=== PATIENT | male | born 1995 | race Caucasian/White ===

== ENCOUNTER 2020-06-15 18:50 | Emergency (ER) | payer OTHER, SELFPAY ==
--- NOTE | ~2020-06-15 | XR_ITS ---
EXAMINATION: XR chest 2V DATE: 06/15/2020 20:33 INDICATION: Shortness of breath and cough. TECHNIQUE: Frontal and lateral views of the chest were obtained. COMPARISON: Chest 2 views 10/15/2017, CT abdomen and pelvis 10/15/2017 FINDINGS: The chest demonstrates clear lungs without pneumonia, pleural effusion, or pneumothorax. Th e heart size is normal. IMPRESSION: 1. No acute cardiopulmonary disease. Reviewed, dictated and finalized at location A.
[2020-06-15 19:00] VITALS: BP 131/85; PULSE 88; RESP 20; TEMP 36.9; O2SAT 96; O2SAT 97
[2020-06-15 19:15] VITALS: PULSE 88
--- NOTE | 2020-06-15 19:23 | ECG_ITS ---
Measurements Intervals [place] Rate: 88 P: -9 WI: 110 QRS: 28 QRSD: 93 T: 29 QT: 339 QTc: 412 Interpretive Statements SINUS RHYTHM WITH SHORT WI INTERVAL BASELINE ARTIFACT- AVR, AVL, AVF BORDERLINE ECG Electronically Signed On 06-16-2020 8:03:49 CDT by Jose Meade D.O.
--- NOTE | 2020-06-15 19:37 | ED.SOB ---
HPI - SOB/Dyspnea General Chief Complaint: Shortness of Breath/Dyspnea Stated Complaint: dizzy,chest pain, tired, sorethroat, blurry vision Time Seen by Provider: 06/15/20 19:05 Source: patient Mode of arrival: ambulatory Limitations: no limitations History of Present Illness HPI Narrative: Patient comes in with complaints of chest pain and shortness of breath. Chest pain is moderately severe, sharp, and has been going on for several days not improving. He has had a cough, mostly a dry cough with this. He denies fever and chills. He has had some mild to moderate shortness of breath. Cough has been wearing him out, but mostly nonproductive. He has had a clear thin runny nose. He believes his cough has precipitated the chest pain. No other modifying factors or associated signs/symptoms. MD elicited complaint: shortness of breath Pertinent past history: pneumonia Onset (ago): day(s) Context: anxiety Timing: constant Severity: moderate Exacerbating factors: nothing Relieving factors: nothing Known history of: asthma Associated symptoms: denies other symptoms Treatment prior to arrival: none Related Data Allergies Allergy/AdvReac Type Severity Reaction Status Date / Time No Known Allergies Allergy Unverified 10/15/17 14:41 Review of Systems Constitutional: Constitutional: Reports no additional constitutional complaints Eyes: Eyes: Reports no additional eye complaints ENT: Reports system reviewed and no additional complaints, except as documented Cardiovascular: Cardiovascular: Reports no additional cardiovascular complaints Respiratory: Respiratory: Reports no additional respiratory complaints Gastrointestinal: Gastrointestinal: Reports no additional gastrointestinal complaints Genitourinary: Genitourinary: Reports no additional male genitourinary complaints Musculoskeletal: Musculoskeletal: Reports no additional musculoskeletal complaints Integumentary/Breasts: Skin/Breast: Reports system reviewed and no additional complaints, except as docu Neurologic: Reports system reviewed and no additional complaints, except as documented Psychiatric: Psychiatric: Reports no additional psychiatric complaints Endocrine: Endocrine: Reports no additional endocrine complaints Hematologic/Lymphatic: Hematologic/Lymphatic: Reports no additional hematologic/lymphatic complaints Allergic/Immunologic: Allergic/Immunologic: Reports no additional allergic/immunologic complaints [facility] Past Medical History Medical History (Updated 06/16/20 @ 02:51 by Ashu Nelson MD) Asthma Pneumonia Surgical History Surgical History (Updated 06/16/20 @ 02:51 by Ashu Nelson MD) No significant past surgical history Family History Family History (Updated 06/16/20 @ 02:52 by Ashu Nelson MD) Father COPD (chronic obstructive pulmonary disease) Hypertension Diabetes mellitus Social History Social History (Updated 06/16/20 @ 02:52 by Ashu Nelson MD) Smoking status: Never smoker Alcohol use details: very rare minimal alcohol use Substance use: never Gender identity (if verbalized by the patient): Male Exam Const: General: healthy appearing and no acute distress Orientation/consciousness: patient oriented x3 HENMT: Head: normal to inspection Ears: external ears normal and TM's normal bilaterally General nose exam: Normal external nose present Face and sinus: normal facial exam Mouth: Yes Normal oral and palatal mucosa present Throat: posterior oropharynx normal Eyes: Conjunctivae: conjunctivae normal Neck: Neck: normal visual inspection Chest: Chest palpation & inspection: normal inspection of the chest Resp: Effort & Inspection: normal respiratory effort Auscultation: clear to auscultation bilaterally Cardio: Rate: regular rate Rhythm: regular rhythm GI: GI Palp: Yes Soft to palpation (nontender) Skin: General skin exam: normal color Neuro: General: patient oriented x3 and moves all e
[2020-06-15 19:40] LABS: Basophils Absolute Auto 0.05 K/mm3 (0.00-0.10); Basophils Percent Auto 0.4 % (0.0-1.0); Eosinophils Absolute Auto 0.21 K/mm3 (0.02-0.50); Eosinophils Percent Auto 1.8 % (1.0-6.0); Hematocrit 47.4 % (40.0-54.0); Hemoglobin 15.2 g/dL (14.0-18.0); Immature Granulocyte Absolute 0.06 K/mm3 (0.00-0.00); Immature Granulocyte Percent A 0.5 % (0.0-0.0); Lymphocytes Absolute Auto 3.62 K/mm3 (1.10-4.50); Lymphocytes Percent Auto 30.2 % (18.0-42.0); Mean Corpuscular HGB Conc 32.1 g/dL (32.0-36.0); Mean Corpuscular Hemoglobin 28.8 pg (27.0-31.0); Mean Corpuscular Volume 89.9 fL (78.0-102.0); Mean Platelet Volume 9.6 fl (8.7-11.0); Monocytes Absolute Auto 0.83 K/mm3 (0.10-0.90); Monocytes Percent Auto 6.9 % (2.0-11.0); Neutrophils Absolute Auto 7.2 K/mm3 (1.7-7.2); Neutrophils Percent Auto 60.2 % (50.0-70.0); Platelet Count Result 402 K/mm3 (150-420); Red Blood Count 5.27 M/mm3 (4.70-6.10); Red Cell Distribution Width 12.7 % (11.6-14.4)
[2020-06-15 19:52] LABS: D Dimer 0.19 mg/L (0.19-0.50)
[2020-06-15 19:57] LABS: Alanine Aminotransferase 71 U/L (16-63); Albumin Level 3.8 g/dL (3.4-5.0); Alkaline Phosphatase 128 U/L (46-116); Anion Gap 10 mmol/L (8-16); Aspartate Amino Transferase 21 U/L (15-37); Bilirubin,Total 0.3 mg/dL (0.00-1.00); Blood Urea Nitrogen 18 mg/dL (7-18); Calcium 8.8 mg/dL (8.5-10.1); Carbon Dioxide 26 mmol/L (21-32); Chloride 105 mmol/L (98-108); Estimated CRCL calculation 127 ml/min; Estimated Glomerular Filt Rate > 60; Glucose 119 mg/dL (70-99); Osmolality Calculated 294 mOsm/kg (285-295); Potassium 4.1 mmol/L (3.5-5.1); Sodium 141 mmol/L (136-145); Total Protein 7.6 g/dL (6.4-8.2); Troponin I 4.2 ng/L (0.00-60.4)
[2020-06-15 20:16] LABS: Influenza A QL RT-PCR Negative (Negative); Influenza B QL RT-PCR Negative (Negative); SARS-CoV-2 RNA PCR Negative (Negative)
[2020-06-15] MEDS: BENZONATATE 100 MG CAPSULE 200 MG PO (20:52)
[2020-06-15 21:02] VITALS: BP 127/86; PULSE 86; RESP 20; TEMP 37.1; O2SAT 98
== END 2020-06-15 21:00 | disposition home or self-care (01) ==
PROVIDERS: Emergency Provider Emergency Medicine; PCP Internal Medicine
DX: J40 Bronchitis, not specified as acute or chronic (principal); Z20.822 Contact with and (suspected) exposure to COVID-19
CPT/HCPCS: 36415; 71046; 80053; 84484; 85025; 85380; 87502; 93005; 99283; 99284; A9270; C9803; U0003; U0005

== ENCOUNTER 2020-10-27 11:46 | Outpatient (CLI) | payer OTHER, SELFPAY ==
[2020-10-27 14:45] LABS: SARS-CoV-2 RNA PCR Negative (Negative)
== END 2020-10-27 11:47 | disposition home or self-care (01) ==
LOC: CHSLAB 11:48
PROVIDERS: PCP Internal Medicine; Visit Provider Internal Medicine
DX: Z20.822 Contact with and (suspected) exposure to COVID-19 (principal)
CPT/HCPCS: C9803; U0003; U0005

== ENCOUNTER 2021-03-21 16:33 | Outpatient (CLI) | payer OTHER, SELFPAY ==
--- NOTE | ~2021-03-21 | XR_ITS ---
EXAMINATION: XR chest 2V DATE: 03/21/2021 16:56 INDICATION: Central chest pain. TECHNIQUE: Frontal and lateral views of the chest were obtained. COMPARISON: Chest 2 views 06/15/2020 FINDINGS: The chest demonstrates clear lungs without pneumonia, pleural effusion, or pneumothorax. Th e heart size is normal. IMPRESSION: 1. No acute cardiopulmonary disease. Reviewed, dictated and finalized at location E. HUNTER
[2021-03-21 16:59] LABS: Basophils Absolute Auto 0.07 K/mm3 (0.00-0.10); Basophils Percent Auto 0.6 % (0.0-1.0); Eosinophils Absolute Auto 0.34 K/mm3 (0.02-0.50); Eosinophils Percent Auto 2.7 % (1.0-6.0); Hemoglobin 15.7 g/dL (14.0-18.0); Immature Granulocyte Absolute 0.06 K/mm3 (0.00-0.00); Immature Granulocyte Percent A 0.5 % (0.0-0.0); Lymphocytes Absolute Auto 3.51 K/mm3 (1.10-4.50); Lymphocytes Percent Auto 27.6 % (18.0-42.0); Mean Corpuscular HGB Conc 32.7 g/dL (32.0-36.0); Mean Corpuscular Hemoglobin 29.3 pg (27.0-31.0); Mean Corpuscular Volume 89.7 fL (78.0-102.0); Mean Platelet Volume 9.8 fl (8.7-11.0); Monocytes Absolute Auto 0.78 K/mm3 (0.10-0.90); Monocytes Percent Auto 6.1 % (2.0-11.0); Neutrophils Percent Auto 62.5 % (50.0-70.0); Platelet Count Result 433 K/mm3 (150-420); Red Blood Count 5.35 M/mm3 (4.70-6.10); Red Cell Distribution Width 13.1 % (11.6-14.4); White Blood Count 12.7 K/mm3 (4.8-10.8)
[2021-03-21 17:03] LABS: Add Urine Microscopic? YES; Appearance Urine Clear (Clear); Bilirubin Urine Negative (Negative); Blood Urine Negative (Negative); Color Urine Yellow (Yellow); Glucose Urine UA Negative (Negative); Ketones Urine Negative (Negative); Leukocyte Esterase Ur 1+ (Negative); Nitrate Urine Negative (Negative); Protein Urine Negative (Negative); Specific Grav Ur >= 1.030 (1.010-1.020); Urobilinogen Urine 0.2 mg/dL (0.2-1.0)
[2021-03-21 17:06] LABS: D Dimer 0.19 mg/L (0.19-0.50)
[2021-03-21 17:20] LABS: Alanine Aminotransferase 80 U/L (16-63); Albumin Level 4.1 g/dL (3.4-5.0); Alkaline Phosphatase 99 U/L (46-116); Anion Gap 10 mmol/L (8-16); Aspartate Amino Transferase 27 U/L (15-37); Bilirubin,Total 0.6 mg/dL (0.00-1.00); Blood Urea Nitrogen 13 mg/dL (7-18); Carbon Dioxide 29 mmol/L (21-32); Chloride 100 mmol/L (98-108); Creatine Kinase 290 U/L (39-308); Estimated Glomerular Filt Rate > 60; Glucose 80 mg/dL (70-99); NT Pro B Type Natriuretic Pept 86 pg/mL (0-125); Osmolality Calculated 287 mOsm/kg (285-295); Potassium 3.9 mmol/L (3.5-5.1); Sodium 139 mmol/L (136-145); Thyroid Stimulating Hormone 1.35 uIU/mL (0.36-3.74); Total Protein 8.3 g/dL (6.4-8.2); Troponin I 4.8 ng/L (0.00-60.4)
[2021-03-21 17:35] LABS: Bacteria Urine Trace /hpf; Mucus Urine Few /lpf; RBC Urine None seen /hpf (0-2); SARS-CoV-2 RNA PCR Negative (Negative); Squamous Epithelial Cell Urine Rare /hpf (Few)
[2021-03-24 05:40] LABS: SARS-CoV-2 IgG <1.00 Index (<1.00)
[2021-03-25 04:14] LABS: Hepatitis A Antibody IgM Nonreactive; Hepatitis B Core Antibody Nonreactive (Nonreactive); Hepatitis B Surface Antigen Nonreactive (Nonreactive); Hepatitis C Signal to Cutoff 0.01 ratio (<1.00); Hepatitis C Virus Antibody Nonreactive (Nonreactive)
== END 2021-03-21 16:34 | disposition home or self-care (01) ==
LOC: CHSLAB 16:35
PROVIDERS: PCP Internal Medicine; Visit Provider Internal Medicine
DX: R07.9 Chest pain, unspecified (principal); R06.00 Dyspnea, unspecified; Z20.822 Contact with and (suspected) exposure to COVID-19; R94.5 Abnormal results of liver function studies
CPT/HCPCS: 36415; 71046; 80053; 80074; 81001; 82550; 82553; 83880; 84443; 84484; 85025; 85380; 86769; C9803; U0003; U0005

== ENCOUNTER 2021-04-08 12:05 | Outpatient (CLI) | payer OTHER, SELFPAY | END 2021-04-08 12:06 | disposition home or self-care (01) | LOC: CHSCARD 12:07 | PROVIDERS: PCP Internal Medicine; Visit Provider Internal Medicine | DX: R06.00 Dyspnea, unspecified (principal) | CPT/HCPCS: 94060; 94726; 94729 ==

== ENCOUNTER 2021-04-08 13:21 | Emergency (ER) | payer OTHER, SELFPAY ==
--- NOTE | ~2021-04-08 | CT_ITS ---
EXAMINATION: CT brain wo con DATE: 04/08/2021 14:04 INDICATION: Weakness and leg numbness. Visual disturbance. TECHNIQUE: Computed tomography (CT) of the head was performed without intravenous contrast. The mA wa s adjusted according to patient size. Iterative reconstruction technique was employed. The dose-lengt h product was 529.67 mGy-cm. COMPARISON: Head CT 08/19/2009 FINDINGS: There is no intracranial hemorrhage, acute infarction, or abnormal intracranial mass lesion . The ventricles are normal in size. There is mild mucosal thickening in the paranasal sinuses. The o rbits are normal. The mastoid air cells are normal. IMPRESSION: 1. Normal brain. Reviewed, dictated and finalized at location A. IAC CATH TECHNICIAN IMPRESSION: 1. Normal brain.
[2021-04-08 13:25] VITALS: BP 133/98; PULSE 93; RESP 20; TEMP 36.9; O2SAT 96
--- NOTE | 2021-04-08 13:35 | ED.WEAKNESS ---
HPI - Weakness General Chief complaint: Weakness Stated complaint: Weak Legs/Head pressure Time Seen by Provider: 04/08/21 13:35 Source: patient History of Present Illness HPI Narrative: 25-year-old male with a history of asthma was at the PFT lab for evaluation of his asthma. He completed the PFTs which revealed mild obstructive lung defect with an FEV1 / FVC ratio of 76. The patient had decreased DLCO of 55% which appears to correct for his lung volumes. Subsequently the patient complained of -- inability to feel his legs -- visual loss with inability to see the clock -- headache which is generalized -- Weakness of his extremities and inability to stand/walk the patient was noted to be hemodynamically stable. Patient was transferred to the ER for further management. Complaint: generalized weakness Onset (ago): minute(s) ( 30 minutes) Duration: constant Location: generalized Migration: none Severity: mild Relieving factors: none Exacerbating factors: none Related Data Home Medications Medication Instructions Recorded Confirmed Adult One Daily Multivitamin 1 tablet BYMOUTH DAILY 04/08/21 04/08/21 Allergies Allergy/AdvReac Type Severity Reaction Status Date / Time No Known Allergies Allergy Unverified 10/15/17 14:41 Review of Systems Constitutional: Constitutional: Reports as per HPI and Reports no additional constitutional complaints Eyes: Comments: unable to see. His vision is blurred. ENT: Reports system reviewed and no additional complaints, except as documented Respiratory: Respiratory: Reports as per HPI and Reports no additional respiratory complaints Gastrointestinal: Gastrointestinal: Reports as per HPI and Reports no additional gastrointestinal complaints Musculoskeletal: Musculoskeletal: Reports no additional musculoskeletal complaints Integumentary/Breasts: Skin/Breast: Reports system reviewed and no additional complaints, except as docu Neurologic: Reports dizziness, Reports headache(s), Reports numbness and Reports weakness Psychiatric: Psychiatric: Reports no additional psychiatric complaints Endocrine: Endocrine: Reports no additional endocrine complaints Hematologic/Lymphatic: Hematologic/Lymphatic: Reports no additional hematologic/lymphatic complaints Allergic/Immunologic: Allergic/Immunologic: Reports no additional allergic/immunologic complaints [facility] Past Medical History Medical History Asthma Pneumonia Surgical History Surgical History No significant past surgical history Family History Family History Father COPD (chronic obstructive pulmonary disease) Hypertension Diabetes mellitus Social History Social History Smoking status: Never smoker Alcohol use details: very rare minimal alcohol use Substance use: never Gender identity (if verbalized by the patient): Male Exam Const: General: no acute distress and alert Orientation/consciousness: patient oriented x3 HENMT: Head: normal to inspection Eyes: Conjunctivae: conjunctivae normal Pupils: Equal, round and reactive pupils present EOM: EOMs intact bilaterally Neck: Neck: normal visual inspection and no lymphadenopathy Chest: Chest palpation & inspection: normal inspection of the chest Resp: Effort & Inspection: normal respiratory effort Auscultation: clear to auscultation bilaterally Cardio: Rate: regular rate Rhythm: regular rhythm GI: GI Palp: Yes Soft to palpation : Testes: Testes normal Back/Spine/Pelvis: Back: no CVA tenderness Skin: General skin exam: normal color Rashes: no rashes Neuro: General: patient oriented x3 and moves all extremities Extrem: General: normal to inspection Psych: Appearance: grossly normal Mental Status: mental sta
--- NOTE | 2021-04-08 13:44 | ECG_ITS ---
Measurements Intervals [place] Rate: 84 P: 0 VA: 115 QRS: 34 QRSD: 96 T: 9 QT: 358 QTc: 424 Interpretive Statements SINUS RHYTHM WITH SHORT VA INTERVAL INFERIOR INFARCT, AGE INDETERMINATE ABNORMAL ECG Electronically Signed On 04-08-2021 14:57:58 ENGINEERING SCIENTIST by Jose Meade D.O.
[2021-04-08 13:46] LABS: Glucose Point of Care 81 mg/dl (65-105)
[2021-04-08 14:24] LABS: Basophils Absolute Auto 0.05 K/mm3 (0.00-0.10); Basophils Percent Auto 0.4 % (0.0-1.0); Eosinophils Absolute Auto 0.21 K/mm3 (0.02-0.50); Eosinophils Percent Auto 1.7 % (1.0-6.0); Hematocrit 48.2 % (40.0-54.0); Hemoglobin 15.7 g/dL (14.0-18.0); Immature Granulocyte Absolute 0.05 K/mm3 (0.00-0.00); Immature Granulocyte Percent A 0.4 % (0.0-0.0); Lymphocytes Absolute Auto 2.38 K/mm3 (1.10-4.50); Lymphocytes Percent Auto 19.1 % (18.0-42.0); Mean Corpuscular HGB Conc 32.6 g/dL (32.0-36.0); Mean Corpuscular Hemoglobin 29.2 pg (27.0-31.0); Mean Corpuscular Volume 89.8 fL (78.0-102.0); Mean Platelet Volume 9.6 fl (8.7-11.0); Monocytes Percent Auto 6.4 % (2.0-11.0); Neutrophils Absolute Auto 8.9 K/mm3 (1.7-7.2); Platelet Count Result 418 K/mm3 (150-420); Red Blood Count 5.37 M/mm3 (4.70-6.10); Red Cell Distribution Width 13.2 % (11.6-14.4); White Blood Count 12.4 K/mm3 (4.8-10.8)
[2021-04-08 14:40] LABS: Partial Thromboplastin Time 26.2 SEC (23.90-30.70); Prothrombin Time 10.6 Seconds (9.50-12.10)
[2021-04-08 14:50] LABS: Alanine Aminotransferase 81 U/L (16-63); Alkaline Phosphatase 104 U/L (46-116); Anion Gap 10 mmol/L (8-16); Aspartate Amino Transferase 32 U/L (15-37); Bilirubin,Total 0.5 mg/dL (0.00-1.00); Blood Urea Nitrogen 13 mg/dL (7-18); Calcium 8.9 mg/dL (8.5-10.1); Carbon Dioxide 27 mmol/L (21-32); Chloride 105 mmol/L (98-108); Estimated CRCL calculation 136 ml/min; Estimated Glomerular Filt Rate > 60; Glucose 91 mg/dL (70-99); Osmolality Calculated 294 mOsm/kg (285-295); Sodium 142 mmol/L (136-145); Total Protein 8.1 g/dL (6.4-8.2)
[2021-04-08 15:08] VITALS: BP 121/79; PULSE 97; RESP 18; TEMP 36.2; O2SAT 97
== END 2021-04-08 15:12 | disposition home or self-care (01) ==
PROVIDERS: Emergency Provider Internal Medicine Critical Care Medicine; PCP Internal Medicine
DX: F44.9 Dissociative and conversion disorder, unspecified (principal)
CPT/HCPCS: 36415; 70450; 80053; 82948; 84484; 85025; 85610; 85730; 93005; 99283

== ENCOUNTER 2021-08-10 17:39 | Outpatient (CLI) | payer OTHER, SELFPAY ==
[2021-08-10 18:12] LABS: Basophils Absolute Auto 0.06 K/mm3 (0.00-0.10); Basophils Percent Auto 0.6 % (0.0-1.0); Eosinophils Absolute Auto 0.08 K/mm3 (0.02-0.50); Eosinophils Percent Auto 0.8 % (1.0-6.0); Hematocrit 45.6 % (40.0-54.0); Hemoglobin 14.9 g/dL (14.0-18.0); Immature Granulocyte Absolute 0.03 K/mm3 (0.00-0.00); Immature Granulocyte Percent A 0.3 % (0.0-0.0); Lymphocytes Absolute Auto 3.06 K/mm3 (1.10-4.50); Lymphocytes Percent Auto 30.4 % (18.0-42.0); Mean Corpuscular HGB Conc 32.7 g/dL (32.0-36.0); Mean Corpuscular Hemoglobin 28.9 pg (27.0-31.0); Mean Corpuscular Volume 88.4 fL (78.0-102.0); Mean Platelet Volume 10.4 fl (8.7-11.0); Monocytes Absolute Auto 0.87 K/mm3 (0.10-0.90); Monocytes Percent Auto 8.6 % (2.0-11.0); Neutrophils Percent Auto 59.3 % (50.0-70.0); Platelet Count Result 330 K/mm3 (150-420); Red Blood Count 5.16 M/mm3 (4.70-6.10); Red Cell Distribution Width 13.6 % (11.6-14.4); White Blood Count 10.1 K/mm3 (4.8-10.8)
[2021-08-10 18:21] LABS: Alanine Aminotransferase 192 U/L (16-63); Albumin Level 3.9 g/dL (3.4-5.0); Alkaline Phosphatase 123 U/L (46-116); Amylase 34 U/L (25-115); Anion Gap 10 mmol/L (8-16); Aspartate Amino Transferase 66 U/L (15-37); Bilirubin,Total 0.4 mg/dL (0.00-1.00); Blood Urea Nitrogen 15 mg/dL (7-18); Calcium 8.4 mg/dL (8.5-10.1); Carbon Dioxide 24 mmol/L (21-32); Chloride 112 mmol/L (98-108); Estimated Glomerular Filt Rate > 60; Glucose 93 mg/dL (70-99); Lipase 95 U/L (73-393); Osmolality Calculated 302 mOsm/kg (285-295); Potassium 3.4 mmol/L (3.5-5.1); Sodium 146 mmol/L (136-145); Total Protein 7.5 g/dL (6.4-8.2)
== END 2021-08-10 17:40 | disposition home or self-care (01) ==
LOC: CHSLAB 17:42
PROVIDERS: PCP Internal Medicine; Visit Provider Internal Medicine
DX: R10.9 Unspecified abdominal pain (principal); R19.7 Diarrhea, unspecified; T75.89XA Other specified effects of external causes, initial encounter
CPT/HCPCS: 36415; 80053; 82150; 83690; 85025; 87045; 87177; 87209; 87324; 87427

== ENCOUNTER 2022-05-31 12:22 | Emergency (ER) | payer OTHER, SELFPAY ==
--- NOTE | ~2022-05-31 | XR_ITS ---
XR chest 1V portable DATE: 05/31/2022 12:52 INDICATION: Shortness of breath TECHNIQUE: Portable AP chest on 05/31/2022 at 1248 hours COMPARISON: 03/21/2021 PA and lateral chest FINDINGS: Normal heart size. No hilar or mediastinal enlargement. No pulmonary vascular congestion or pleural effusion or pneumothorax. IMPRESSION: Negative Reviewed, dictated and finalized at location B. IMPRESSION: Negative
[2022-05-31 12:34] VITALS: BP 132/74; PULSE 111; RESP 20; TEMP 36.6; O2SAT 94
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
[2022-05-31] MEDS: IPRATROPIUM 0.5 MG/ALBUTEROL SULFATE 2.5 MG AMPUL.NEB 3 ML INHALATION (12:41)
--- NOTE | 2022-05-31 12:41 | ECG_ITS ---
Measurements Intervals [place] Rate: 106 P: 27 NM: 136 QRS: 40 QRSD: 93 T: 20 QT: 320 QTc: 426 Interpretive Statements SINUS TACHYCARDIA POSSIBLE INFERIOR MYOCARDIAL INFARCTION , PROBABLY OLD [30 ms Q WAVE IN II/aVF] ABNORMAL ECG COMPARED TO ECG 04/08/2021 13:50:18 SINUS TACHYCARDIA NOW PRESENT Electronically Signed On 06-01-2022 16:32:59 CDT by Jeff Flores M.D.
[2022-05-31 12:42] VITALS: PULSE 98; RESP 18; O2SAT 96
[2022-05-31 12:59] VITALS: PULSE 98; RESP 18; O2SAT 96
[2022-05-31 13:01] VITALS: O2SAT 94
[2022-05-31 13:02] LABS: Basophils Absolute Auto 0.09 K/mm3 (0.00-0.10); Eosinophils Absolute Auto 0.54 K/mm3 (0.02-0.50); Eosinophils Percent Auto 6.1 % (1.0-6.0); Hematocrit 47.7 % (40.0-54.0); Hemoglobin 15.3 g/dL (14.0-18.0); Immature Granulocyte Absolute 0.08 K/mm3 (0.00-0.00); Immature Granulocyte Percent A 0.9 % (0.0-0.0); Lymphocytes Absolute Auto 2.22 K/mm3 (1.10-4.50); Lymphocytes Percent Auto 24.9 % (18.0-42.0); Mean Corpuscular HGB Conc 32.1 g/dL (32.0-36.0); Mean Corpuscular Hemoglobin 28.5 pg (27.0-31.0); Mean Corpuscular Volume 88.8 fL (78.0-102.0); Mean Platelet Volume 9.7 fl (8.7-11.0); Monocytes Absolute Auto 0.87 K/mm3 (0.10-0.90); Monocytes Percent Auto 9.8 % (2.0-11.0); Neutrophils Absolute Auto 5.1 K/mm3 (1.7-7.2); Neutrophils Percent Auto 57.3 % (50.0-70.0); Platelet Count Result 347 K/mm3 (150-420); Red Blood Count 5.37 M/mm3 (4.70-6.10); Red Cell Distribution Width 13.6 % (11.6-14.4); White Blood Count 8.9 K/mm3 (4.8-10.8)
[2022-05-31 13:16] LABS: D Dimer 0.43 mg/L (0.19-0.50); Partial Thromboplastin Time 26.9 SEC (23.90-30.70); Prothrombin Time 10.8 Seconds (9.50-12.10)
[2022-05-31 13:23] LABS: Alanine Aminotransferase 99 U/L (16-63); Albumin Level 3.7 g/dL (3.4-5.0); Alkaline Phosphatase 107 U/L (46-116); Anion Gap 8 mmol/L (8-16); Aspartate Amino Transferase 48 U/L (15-37); Bilirubin,Total 0.5 mg/dL (0.00-1.00); Blood Urea Nitrogen 12 mg/dL (7-18); Calcium 8.9 mg/dL (8.5-10.1); Carbon Dioxide 30 mmol/L (21-32); Chloride 102 mmol/L (98-108); Estimated CRCL calculation 181 ml/min; Estimated Glomerular Filt Rate > 60; Glucose 93 mg/dL (70-99); NT Pro B Type Natriuretic Pept 32 pg/mL (0-125); Osmolality Calculated 289 mOsm/kg (285-295); Potassium 4.1 mmol/L (3.5-5.1); Sodium 140 mmol/L (136-145)
[2022-05-31] MEDS: methylPREDNISolone SOD SUCC 125 MG VIAL 40 MG IM (13:27)
[2022-05-31 13:38] LABS: Influenza A QL RT-PCR Negative (Negative); Influenza B QL RT-PCR Negative (Negative); SARS-CoV-2 RNA PCR Negative (Negative)
[2022-05-31 13:39] LABS: RSV RNA, RT-PCR Negative (Negative)
[2022-05-31 13:53] VITALS: BP 115/66; PULSE 114; RESP 18; TEMP 36.4; O2SAT 95
--- NOTE | 2022-05-31 14:30 | PC.NURSE ---
On 05/31/22, the student, [eveline bull ], provided care and completed [facility] documentation on this patient. I have reviewed the student's documentation and agree with the findings.
== END 2022-05-31 13:55 | disposition home or self-care (01) ==
PROVIDERS: Emergency Provider Internal Medicine Critical Care Medicine; PCP Internal Medicine
DX: J45.901 Unspecified asthma with (acute) exacerbation (principal); R74.01 Elevation of levels of liver transaminase levels; Z20.822 Contact with and (suspected) exposure to COVID-19
CPT/HCPCS: 36415; 71045; 80053; 83880; 84484; 85025; 85380; 85610; 85730; 87637; 93005; 94640; 96372; 99283; J2930

== ENCOUNTER 2023-06-10 12:48 | Emergency (ER) | payer OTHER, SELFPAY ==
--- NOTE | ~2023-06-10 | CT_ITS ---
EXAMINATION: CT lumbar spine wo con DATE: 06/10/2023 14:36 INDICATION: Low back pain. TECHNIQUE: Computed tomography (CT) of the lumbar spine was performed without intravenous contrast. A utomated exposure control and iterative reconstruction technique were employed. The dose-length produ ct was 1478.64 mGy-cm. COMPARISON: Lumbar spine radiographs 06/10/23, CT abdomen and pelvis 10/15/2017 FINDINGS: Bone alignment is normal. There is mild chronic anterior wedging of T12 vertebral body. The re is an old healed fracture of right T12 pars interarticularis. There is moderately decreased disc h eight at T11-T12. The following disc levels are specifically discussed: L1-L2: The disc does not extend beyond the endplate margin. There is mild bilateral facet joint osteo arthritis. There is no neural foraminal stenosis. There is no central canal stenosis. L2-L3: The disc does not extend beyond the endplate margin. There is moderate bilateral facet joint o steoarthritis. There is mild right neural foraminal stenosis. There is no central canal stenosis. L3-L4: The disc does not extend beyond the endplate margin. There is moderate bilateral facet joint o steoarthritis. There is mild bilateral neural foraminal stenosis. There is no central canal stenosis. L4-L5: There is a left foraminal extrusion. There is mild lateral facet joint osteoarthritis. There i s mild right and moderate left neural foraminal stenosis. There is no central canal stenosis. L5-S1: The disc is bulging. There is mild bilateral facet joint osteoarthritis. There is mild bilater al neural foraminal stenosis. There is mild central canal stenosis. IMPRESSION: 1. Moderate left neural foraminal stenosis at L4-L5. Otherwise mild lumbar spondylosis. 2. Moderate lower thoracic spondylosis. Reviewed, dictated and finalized at location E. IMPRESSION: 1. Moderate left neural foraminal stenosis at L4-L5. Otherwise mild lumbar spon dylosis. 2. Moderate lower thoracic spondylosis.
--- NOTE | ~2023-06-10 | XR_ITS ---
EXAMINATION: XR lumbar spine 2-3V DATE: 06/10/2023 14:00 INDICATION: Low back pain. TECHNIQUE: 3 views of lumbar spine were obtained. COMPARISON: Lumbar spine radiographs 03/04/2015 FINDINGS: There is hypolordosis of the lumbar spine. There is mild chronic anterior wedging of T12 ve rtebral body. There is mildly decreased disc height at L2-L3. There is multilevel mild facet joint os teoarthritis. IMPRESSION: 1. Mild lumbar spondylosis. Reviewed, dictated and finalized at location E. IMPRESSION: 1. Mild lumbar spondylosis.
[2023-06-10 12:52] VITALS: BP 141/88; PULSE 71; RESP 18; TEMP 36.2; O2SAT 96
--- NOTE | 2023-06-10 13:10 | ED.BACK ---
HPI - Back Pain/Injury General Chief Complaint: Back Pain/Injury Stated Complaint: L back pain Source: patient Mode of arrival: ambulatory Limitations: no limitations History of Present Illness HPI Narrative: Patient is a 27-year-old male with a coughing episode at home and pulled his lower back around them mid lower to left of the spine. He is having severe pain of this area. No pain down the legs or buttocks. He did hear a pop sound with the coughing event. MD elicited complaint: back pain Onset (ago): hour(s) (1) Timing: constant Severity: severe Pain scale (0-10): 8 Similar Symptoms Previously: No Quality: sharp and stabbing Location: lumbar spine and left lower back Radiation: abdomen Exacerbating factors: movement Relieving factors: immobilization Context: while lifting, turning/twisting and bending Associated symptoms: denies other symptoms Work related injury: No Related Data Allergies Allergy/AdvReac Type Severity Reaction Status Date / Time No Known Allergies Allergy Unverified 05/31/22 13:17 Review of Systems Review of Systems: All systems reviewed & are unremarkable except as noted in HPI and below Constitutional: Constitutional: Reports no additional constitutional complaints Eyes: Eyes: Reports no additional eye complaints ENT: Reports system reviewed and no additional complaints, except as documented Cardiovascular: Cardiovascular: Reports no additional cardiovascular complaints Respiratory: Respiratory: Reports no additional respiratory complaints Gastrointestinal: Gastrointestinal: Reports no additional gastrointestinal complaints Genitourinary: Genitourinary: Reports no additional male genitourinary complaints Musculoskeletal: Musculoskeletal: Reports no additional musculoskeletal complaints Integumentary/Breasts: Skin/Breast: Reports system reviewed and no additional complaints, except as docu Neurologic: Reports system reviewed and no additional complaints, except as documented Psychiatric: Psychiatric: Reports no additional psychiatric complaints Endocrine: Endocrine: Reports no additional endocrine complaints Hematologic/Lymphatic: Hematologic/Lymphatic: Reports no additional hematologic/lymphatic complaints Allergic/Immunologic: Allergic/Immunologic: Reports no additional allergic/immunologic complaints [facility] Past Medical History Medical History Asthma Pneumonia Surgical History Surgical History No significant past surgical history Family History Family History Father COPD (chronic obstructive pulmonary disease) Hypertension Diabetes mellitus Social History Social History Smoking status: Never smoker Alcohol use details: very rare minimal alcohol use Substance use: never Gender identity (if verbalized by the patient): Male Exam Const: General: healthy appearing Nutritional Appearance: well nourished Orientation/consciousness: patient oriented x3 HENMT: Head: normal to inspection Ears: external ears normal Face/Nose/Sinus: Normal external nose present Eyes: Conjunctivae: conjunctivae normal Pupils: Equal, round and reactive pupils present EOM: EOMs intact bilaterally Neck: Neck: normal visual inspection Chest: Chest palpation & inspection: normal inspection of the chest Resp: Effort & Inspection: normal respiratory effort and not labored Auscultation: clear to auscultation bilaterally Cardio: Rate: regular rate Rhythm: regular rhythm Heart sounds: no murmurs GI: Inspection: non-distended GI Palp: Yes Soft to palpation and No Tenderness to palpation present (GI) Auscultation: normal bowel sounds : General: Yes bladder normal to palpation Back/Spine/Pelvis: Back: no CVA tenderness Other: Tender lateral left o
[2023-06-10] MEDS: KETOROLAC (*BKC) 60 MG/2 ML VIAL IM (13:30)
[2023-06-10] MEDS: ORPHENADRINE CITRATE 30 MG/ML 2 ML VIAL 60 MG IM (13:30)
[2023-06-10] MEDS: HYDROcodone/acetaminophen (*CRX) 5-325 MG TABLET 1 TAB PO (14:20)
[2023-06-10 15:14] VITALS: BP 140/82; PULSE 74; RESP 18; TEMP 36.7; O2SAT 98
[2023-06-10] MEDS: predniSONE 20 MG TABLET 40 MG PO (15:16)
== END 2023-06-10 15:28 | disposition home or self-care (01) ==
PROVIDERS: Emergency Provider Emergency Medicine; PCP Internal Medicine
DX: M54.16 Radiculopathy, lumbar region (principal); R05.9 Cough, unspecified; J45.909 Unspecified asthma, uncomplicated
CPT/HCPCS: 72100; 72131; 96372; 99284; A9270; J1885; J2360; J7512